=== PATIENT | female | born 1960 | race African-American/Black ===

== ENCOUNTER 2017-05-12 08:24 | Day surgery (SDC) | payer BC ==
[2017-05-09 13:24] VITALS: BMI 31.3
[2017-05-12] MEDS ORDERED: MIDAZOLAM HCL 2 MG/2 ML SINGLE DOSE VIAL ONE ×2 (08:27→10:08)
[2017-05-12] MEDS ORDERED: oxyCODONE HCL 5 MG TABLET PO PRN (09:56)
[2017-05-12] MEDS ORDERED: ONDANSETRON 4 MG/2 ML VIAL IVPUSH PRN (09:56)
[2017-05-12] MEDS ORDERED: LACTATED RINGERS SOLUTION 1,000 ML IV SCH (10:00)
[2017-05-12] MEDS ORDERED: PROPOFOL 20 ML ONE (10:08)
[2017-05-12] MEDS ORDERED: DEXAMETHASONE SOD PHOSPHATE 4 MG/1 ML VIAL ONE (10:10)
[2017-05-12] MEDS ORDERED: LIDOCAINE HCL/PF 2% SDV 5ML VIAL ONE (10:10)
[2017-05-12] MEDS ORDERED: LIDOCAINE HCL 2% JELLY (5 ML/TUBE) ONE (10:10)
[2017-05-12] MEDS ORDERED: KETOROLAC TROMETHAMINE 30 MG/1 ML VIAL ONE (10:10)
[2017-05-12] MEDS ORDERED: EPINEPHrine 1:1,000 1 MG/1 ML - 30ML VIAL (INJECTION) ONE (10:17)
[2017-05-12] MEDS ORDERED: BUPIVACAINE HCL/PF 2.5 MG/ML - 30 ML VIAL IJ ONE (10:17)
[2017-05-12] MEDS ORDERED: ePHEDrine SULFATE 50 MG/1 ML AMPULE ONE (11:14)
[2017-05-12] MEDS ORDERED: ONDANSETRON 4 MG/2 ML VIAL ONE (12:05)
[2017-05-12 13:40] VITALS: TEMP 97.6
[2017-05-12] MEDS ORDERED: FAMOTIDINE 20 MG PREMIXED IVPB IVPB ONE (13:45)
[2017-05-12] MEDS ORDERED: FAMOTIDINE IV 20 MG/12 ML VIAL IVPUSH ONE (14:00)
[2017-05-12] MEDS ORDERED: oxyCODONE HCL 5 MG TABLET ONE (14:25)
[2017-05-12 15:09] VITALS: BP 117/66; PULSE 74
--- NOTE | 2017-05-14 23:33 | OP ---
DATE OF OPERATION: 05/12/2017 SURGEON: Norm Quijano MD [employer] LOFTSMAN: DAWIT Lee PREOPERATIVE DIAGNOSIS: 1. Left knee mediolateral meniscal tear. 2. Left knee cartilage injury. 3. Left knee synovitis. POSTOPERATIVE DIAGNOSIS: 1. Left knee mediolateral meniscal tear. 2. Left knee cartilage injury. 3. Left knee synovitis. PROCEDURES:1. Left knee arthroscopy with resection of mediolateral meniscus. 2. Left knee arthroscopy with chondroplasty and abrasioplasty. 3. Left knee arthroscopy with synovectomy including removal of medial plica. FINDINGS: 1. Medial meniscus body and posterior horn tear. 2. Lateral meniscus posterior horn tear. 3. Synovitis of patellofemoral, medial and lateral notch area with medial plica. 4. Central grade 2-3 cartilage injury of medial femoral condyle. 5. ACL and PCL intact. 6. Antegrade 2 cartilage injury of the lateral tibial plateau and femoral condyle. 7. Central grade 1-2 cartilage injury of the patellofemoral and trochlea with antegrade 4 changes of anterior patellofemoral trochlea. PROCEDURE: Informed consent was obtained. The patient came to the operating room, where the lower extremity was prepped and draped in a sterile fashion. A tourniquet was placed on the upper thigh, but not inflated. Using standard arthroscopic technique, a lateral incision and portal was made to allow for introduction of the camera into the suprapatellar bursa. This was then taken to the medial joint line, where under direct visualization, a medial incision and portal was made. Excessive synovium noted in the medial, lateral and patellofemoral and notch area was removed by an upbiter, shaver and Bovie cautery. This was found to bring in inflammatory tissue into the joint surface, a source of pain and dysfunction. Probing of the medial and lateral meniscus found tears, as described in the findings. These were removed with the upbiter and shaver and taken back to a stable rim. Grade 2 to 3 degenerative changes were treated with a chondroplasty, removing all flaking surfaces with low-setting Bovie along the periphery to prevent further flaking. Grade 4 changes, as noted, were treated with an abrasoplasty, creating a bleeding surface at the bone/cartilage interface. Aggressive debridement with shaver/faye created bleeding surface. Mirco fracture also done when indicated in findings All areas of the knee were once again reexamined. The knee was then drained and a single suture was placed in all portals. A sterile dressing was placed and the patient was transferred to the recovery room without complication. NORM QUIJANO M.D. [id number]
--- NOTE | 2017-05-16 12:32 | PATH ---
Surgical Pathology Report Patient Name: BESSY MORATAYA [facility]. Rec. #: [id number] /Age/Gender: 1960 (Age: 56) / F Account: [id number] Location: [facility] AMBULATORY Taken: 05/12/2017 Received: 05/12/2017 Reported: 05/16/2017 Physicians: Norm Gonzalez M.D. Specimen(s) Received SHAVINGS LEFT KNEE Clinical History Internal derangement left knee Final Diagnosis KNEE, LEFT, ARTHROSCOPIC SHAVINGS: SCANT FIBROADIPOSE TISSUE AND BLOOD CLOT. Electronically Signed Esther Ku M.D. Gross Description Received in formalin labeled "shavings left knee," is a 1.4 x 0.8 x 0.2 cm aggregate of [place]-yellow soft tissue fragments admixed with blood clot. The formalin is filtered and the specimen is entirely submitted in one cassette. 05/12/201705/12/2017
== END 2017-05-12 15:10 | disposition home or self-care (01) ==
LOC: FASU 08:24
PROVIDERS: ATTEND Orthopaedic Surgery
PROC: 0SBD4ZZ Excision of Left Knee Joint, Percutaneous Endoscopic Approach (ICD-10-PCS; 2017-05-12)
PROC: 0SBD4ZZ Excision of Left Knee Joint, Percutaneous Endoscopic Approach (ICD-10-PCS; 2017-05-12)
PROC: 0SBD4ZZ Excision of Left Knee Joint, Percutaneous Endoscopic Approach (ICD-10-PCS; principal; 2017-05-12 11:18)
DX: S83.242A Other tear of medial meniscus, current injury, left knee, initial encounter (principal); S83.282A Other tear of lateral meniscus, current injury, left knee, initial encounter; S83.8X2A Sprain of other specified parts of left knee, initial encounter; M65.862 Other synovitis and tenosynovitis, left lower leg; X58.XXXA Exposure to other specified factors, initial encounter; Y93.9 Activity, unspecified; Y92.9 Unspecified place or not applicable
CPT/HCPCS: 82962; 88304-TC; 94760